=== PATIENT | female | born 1970 | race Native Hawaiian/Other Pacific Islander ===

== ENCOUNTER 2018-08-29 11:51 | Observation (INO) | payer BC ==
[~2018-08-29] VITALS: Ht 170.2 cm; Wt 99.1 kg
[2018-08-29 12:05] VITALS: BP 110/43; TEMP 98.1
[2018-08-29 12:18] LABS: PLATELET COUNT 203 K/uL (152-353)
[2018-08-29 12:29] LABS: POTASSIUM 4.4 mmol/L (3.6-5.2); SODIUM 141 mmol/L (136-145)
[2018-08-29 13:37] VITALS: BP 106/49
[2018-08-29 14:25] VITALS: BP 116/58
[2018-08-29 15:25] VITALS: BP 129/55; TEMP 98.2; Ht 170.2 cm; Wt 99.1 kg
[2018-08-29 16:06] VITALS: BP 129/55; TEMP 98.2
[2018-08-29 21:15] VITALS: BP 112/58; TEMP 99
[2018-08-30 00:04] VITALS: BP 104/44; TEMP 99.3
[2018-08-30 03:26] LABS: PLATELET COUNT 169 K/uL (152-353)
[2018-08-30 03:41] LABS: POTASSIUM 3.8 mmol/L (3.6-5.2)
[2018-08-30 04:24] VITALS: BP 94/42; TEMP 102.7
[2018-08-30 07:15] VITALS: BP 86/47; TEMP 98.8
[2018-08-30 11:30] VITALS: BP 92/42; TEMP 99.3
[2018-08-30 16:00] VITALS: BP 89/44; TEMP 98.9
[2018-08-30 20:17] VITALS: BP 99/55; TEMP 98.4
[2018-08-31 00:37] VITALS: BP 92/46; TEMP 98.1
[2018-08-31 04:11] VITALS: BP 95/48; TEMP 98.3
[2018-08-31 05:47] LABS: PLATELET COUNT 198 K/uL (152-353)
[2018-08-31 05:59] LABS: POTASSIUM 3.3 mmol/L (3.6-5.2)
[2018-08-31 08:16] VITALS: BP 85/33; TEMP 98
[2018-08-31] MEDS ORDERED: FERROUS SULF325 MG PO (09:48)
== END 2018-08-31 12:00 | disposition home or self-care (01) ==
LOC: ED 11:51 → MED/SURG 13:45
PROVIDERS: ADMIT Family Medicine
PROC: 30233N1 Transfusion of Nonautologous Red Blood Cells into Peripheral Vein, Percutaneous Approach (ICD-10-PCS; principal; 2018-08-29)
DX: D50.8 Other iron deficiency anemias (principal); R07.89 Other chest pain; E11.9 Type 2 diabetes mellitus without complications; E03.8 Other specified hypothyroidism
CPT/HCPCS: 36415; 36430; 80053; 81000; 82248; 82272; 82550; 82553; 82728; 83540; 83550; 84484; 85027; 86850; 86900; 86901; 86922; 87040; 93005; 96374; 99220; 99283; G0378; J1940; P9016